=== PATIENT | female | born 1940 | race Caucasian/White ===

== ENCOUNTER 2017-03-31 20:43 | Emergency (ER) | payer MEDICARE, OTHER ==
[~2017-03-31] VITALS: Ht 154.9 cm; Wt 53.6 kg
[~2017-03-31 20:43] MED LIST: ALBU2.5V13 NEB; AMIT50TA3 PO; APIX2.5T PO; ATOR10TA87 PO; BUDE10.23 IH; CARV25TA PO; CHOL100046 PO; DIGO125T78 PO; FURO-150 PO; LEVO250T58 PO; LISI-604 PO; METF500T4 PO; OMEG500C PO; OMEP20TA5 PO; PANT-47 PO; POTA10TA15 PO; PRED20TA PO
[2017-03-31 21:35] VITALS: BP 127/39
== END 2017-03-31 21:42 | disposition home or self-care (01) ==
LOC: ER 20:44
DX: M79.622 Pain in left upper arm (principal); I11.0 Hypertensive heart disease with heart failure; I50.9 Heart failure, unspecified; I48.91 Unspecified atrial fibrillation; I49.9 Cardiac arrhythmia, unspecified; E11.42 Type 2 diabetes mellitus with diabetic polyneuropathy; E78.00 Pure hypercholesterolemia, unspecified; J44.9 Chronic obstructive pulmonary disease, unspecified; K21.9 Gastro-esophageal reflux disease without esophagitis; Z87.891 Personal history of nicotine dependence; Z87.442 Personal history of urinary calculi; Z95.0 Presence of cardiac pacemaker; Z90.49 Acquired absence of other specified parts of digestive tract; Z79.84 Long term (current) use of oral hypoglycemic drugs; Z79.899 Other long term (current) drug therapy
CPT/HCPCS: 82948; 93005; 99283